=== PATIENT | male | born 1980 | race Hispanic/Latino ===

== ENCOUNTER 2017-03-04 10:02 | Emergency (ER) | payer SELFPAY ==
[~2017-03-04] VITALS: Ht 165.1 cm; Wt 90.9 kg
[2017-03-04 10:15] VITALS: BP 128/84; PULSE 68; RESP 17; O2SAT 96
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
[2017-03-04] MEDS ORDERED: HYDROcodone-APAP 5-325 mg Tablet PO ONE (12:00)
[2017-03-04] MEDS ORDERED: HYDR-4003 PO (12:21)
[2017-03-04 12:36] VITALS: BP 113/70; PULSE 61; RESP 14; O2SAT 98
== END 2017-03-04 12:44 | disposition home or self-care (01) ==
LOC: SED 10:02
DX: S20.211A Contusion of right front wall of thorax, initial encounter (principal); W22.8XXA Striking against or struck by other objects, initial encounter; Y93.89 Activity, other specified; Y92.89 Other specified places as the place of occurrence of the external cause; Y99.8 Other external cause status